=== PATIENT | female | born 1985 | race Caucasian/White ===

== ENCOUNTER → 2016-10-18 | Outpatient (CLI) | payer OTHER ==
--- NOTE | 2016-10-21 10:09 | US ---
Right Breast Ultrasound History: Evaluate painful palpable area at the 12 o'clock position of the right breast 8 cm from the nipple. Technique: Longitudinal and transverse images were obtained utilizing a 15 MHz transducer. Color Dop pler evaluation is employed for assessment of vascularity. Findings: On physical examination, the breast has a heterogeneous characterization. The palpable area the patient reports is in the periphery of the breast with chest wall musculature as well as ribs im mediately beneath the area. Sonographic interrogation demonstrates prominent fibroglandular elements. No suspicious solid masses seen and no dominant cyst is identified. Impression: Benign sonography, BI-RADS 2. Recommendation: Continued clinical follow-up as long as physical examination is benign routine mammog raphic screening would be suggested at the age of 42. If the palpable area enlarges or becomes suspic ious for any reason, additional evaluation or surgical consultation could be considered. Findings and follow-up recommendations were reviewed with the patient in detail. [facility] will send a result letter to the patient.
== END ==
LOC: FIMAGING 08:47
PROVIDERS: ATTEND Obstetrics & Gynecology
DX: N64.4 Mastodynia (principal)